=== PATIENT | female | born 1990 | race Caucasian/White ===

== ENCOUNTER 2017-08-08 12:43 | Emergency (ER) | payer MEDICAID ==
[2017-08-08] MEDS ORDERED: methylPREDNISolone SUCCINATE 125 MG/2 ML VIAL IVP STA (12:56)
[2017-08-08] MEDS ORDERED: EPINEPHrine 1 MG/ML AMP IM STA (12:56)
[2017-08-08] MEDS ORDERED: SODIUM CHLORIDE 0.9% 1,000 ML IV ONE (12:56)
[2017-08-08] MEDS ORDERED: EPINEPHrine 1 MG/ML AMP ONE (12:57)
--- NOTE | 2017-08-08 13:01 | ED Physician Documentation ---
PD HPI SKIN - Stated complaint Stated Complaint: SOA/ALLERGIC REACTION - Chief complaint Chief Complaint: Allergic Rx - History obtained from History obtained from: Patient - History of Present Illness Timing - onset: Other (Without clear inciting because she developed facial redness and a feeling of warmth and then a diffuse rash today. It is unclear what caused this. It did not start after eating. She has no history of anaphylaxis. She is visiting from out of the area and has been using a number of new soaps and detergents and also smokes marijuana just prior to this happening but that is not uncommon for her.) Review of Systems Constitutional: reports: Fever ("feels hot"). denies: Chills Nose: denies: Rhinorrhea / runny nose, Congestion Throat: denies: Sore throat Respiratory: denies: Dyspnea, Cough GI: denies: Abdominal Pain, Nausea, Vomiting PD PAST MEDICAL HISTORY - Past Medical History Past Medical History: No - Present Medications Home Medications: Ambulatory Orders Medication Instructions Recorded Confirmed EPINEPHrine [Epinephrine] 0.3 mg IJ ONCE PRN #2 auto.injct 08/08/17 predniSONE [Deltasone] 60 mg PO DAILY 5 Days tablet 08/08/17 - Allergies Allergies/Adverse Reactions: Allergies Allergy/AdvReac Type Severity Reaction Status Date / Time No Known Drug Allergies Allergy Verified 08/08/17 13:07 - Social History Does the pt have substance abuse?: Yes Substance Use and Type: Marijuana - Family History Family history: reports: Non contributory PD ED PE NORMAL - Vitals Vital signs reviewed: Yes - General General: Alert and oriented X 3, No acute distress - HEENT HEENT: Other (She is 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 that does not affect the oropharynx.) - Neck Neck: Supple, no meningeal sign, No bony TTP - Cardiac Cardiac: No murmur, Other (v tachy) - Respiratory Respiratory: No respiratory distress, Clear bilaterally - Abdomen Abdomen: Soft, Non tender - Back Back: No CVA TTP, No spinal TTP - Derm Derm: Other (Significant diffuse erythroderma with positive dermatographia.) - Neuro Neuro: Alert and oriented X 3, Normal speech - Psych Psych: Normal mood, Normal affect Results - Vitals Vitals: Vital Signs - 24 hr 08/08/17 08/08/17 08/08/17 12:50 13:30 14:05 Temperature 37.3 C Heart Rate 150 H 91 74 Respiratory 15 15 14 Rate Blood Pressure 135/86 H 109/70 112/82 H O2 Saturation 100 100 100 08/08/17 16:55 Temperature Heart Rate 91 Respiratory 18 Rate Blood Pressure 100/84 H O2 Saturation 98 Oxygen O2 Source Room air - Labs Labs: Laboratory Tests 08/08/17 08/08/17 08/08/17 13:00 13:00 15:00 WBC 6.9 RBC 4.80 Hgb 16.9 H Hct 48.1 H MCV 100.1 H MCH 35.1 H MCHC 35.1 RDW 12.4 Plt Count 216 MPV 8.1 Neut # 3.1 Lymph # 3.2 Bryan # 0.5 Eos # 0.1 Baso # 0.0 Absolute Nucleated RBC 0.01 Nucleated RBC % 0.1 Sodium 134 L Potassium 3.9 Chloride 103 Carbon Dioxide 20 L Anion Gap 11.0 BUN 18 Creatinine 1.0 Estimated GFR (MDRD) 66 L Glucose 147 H Calcium 9.3 Total Bilirubin 0.9 AST 18 ALT 14 Alkaline Phosphatase 59 Total Protein 7.2 Albumin 4.8 Globulin 2.4 Albumin/Globulin Ratio 2.0 Lipase 14 L Urine Color YELLOW Urine Clarity CLEAR Urine pH 6.0 Ur Specific [place] 1.020 Urine Protein NEGATIVE Urine Glucose (UA) NEGATIVE Urine Ketones 15 H Urine Occult Blood NEGATIVE Urine Nitrite NEGATIVE Urine Bilirubin NEGATIVE Urine Urobilinogen 0.2 (NORMAL) Ur Leukocyte Esterase NEGATIVE Ur Microscopic Review NOT INDICATED Urine Culture Comments NOT INDICATED Urine HCG, Qual NEGATIVE PD MEDICAL DECISION MAKING - ED course ED course: 27-year-old woman with anaphylaxis that actually looks pretty severe but is without clear source. Given 0.3 mg of IM epinephrine on initial evaluation with significant improvement in her symptoms, also followed by IV Benadryl and Solu-Medrol. Later had some itching without overt evidence of recurrent anaphylaxis and the Benadryl was repeated with no more recurrent symptoms during a 6 hour observation period. The patient and family were counseled as to the diagnosis and need for follow- up. I counseled the patient with regard to signs and symptoms that would necessitate an urgent reevaluation in the emergency department. They understand they are welcome to return at any time if worse or if not improving as expected. This document was made in part using voice recognition software. While efforts are made to proofread this documents, sound alike and grammatical errors may occur. Departure - Departure Disposition: 01 Home, Self Care Clinical Impression: Anaphylaxis Qualifiers: Encounter type: initial encounter Qualified Code(s): T78.2XXA - Anaphylactic shock, unspecified, initial encounter Condition: Critical Instructions: ED Anaphylaxis General Prescriptions: EPINEPHrine [Epinephrine] 0.3 mg IJ ONCE PRN #2 auto.injct PRN Reason: Allergy Symptoms predniSONE [Deltasone] 60 mg PO DAILY 5 Days tablet Comments: Call your doctor to arrange a follow-up appointment, make the next available appointment. In the interim, return anytime if worse or if new symptoms develop.
[2017-08-08 13:10] LABS: BASOPHILS % (AUTO) 0.1 %; EOSINOPHILS # (AUTO) 0.1 10^3/uL (0.0-0.7); EOSINOPHILS % (AUTO) 1.5 %; HCT - HEMATOCRIT 48.1 % (37.0-47.0); HGB - HEMOGLOBIN 16.9 g/dL (12.0-16.0); LYMPHOCYTES # (AUTO) 3.2 10^3/uL (1.5-3.5); LYMPHOCYTES % (AUTO) 46.4 %; MEAN CORPUSCULAR HEMOGLOBIN 35.1 pg (27.0-31.0); MEAN CORPUSCULAR HGB CONC 35.1 g/dL (32.0-36.0); MEAN CORPUSCULAR VOLUME 100.1 fL (81.0-99.0); MEAN PLATELET VOLUME 8.1 fL (7.9-10.8); MONOCYTES # (AUTO) 0.5 10^3/uL (0.0-1.0); MONOCYTES % (AUTO) 7.4 %; NEUTROPHILS # (AUTO) 3.1 10^3/uL (1.5-6.6); NEUTROPHILS % (AUTO) 44.6 %; NUCLEATED RED BLOOD CELLS AUTO 0.1 /100WBC; RED CELL DISTRIBUTION WIDTH 12.4 % (12.0-15.0); UNCORRECTED WHITE BLOOD COUNT 6.9 x10^3/uL; WHITE BLOOD COUNT 6.9 x10^3/uL (4.8-10.8)
[2017-08-08] MEDS: diphenhydrAMINE INJ 50 MG/ML VIAL IVP STA ×2 (13:12→15:31)
[2017-08-08] MEDS ORDERED: diphenhydrAMINE INJ 50 MG/ML VIAL ONE ×2 (13:17→15:35)
[2017-08-08] MEDS ORDERED: methylPREDNISolone SUCCINATE 125 MG/2 ML VIAL ONE (13:18)
[2017-08-08 13:22] LABS: BILIRUBIN,TOTAL 0.9 mg/dL (0.2-1.0); CALCIUM 9.3 mg/dL (8.5-10.3); POTASSIUM 3.9 mmol/L (3.5-5.0); TOTAL PROTEIN 7.2 g/dL (6.7-8.2)
[2017-08-08] MEDS ORDERED: diphenhydrAMINE INJ 50 MG/ML VIAL IVP STA (15:23)
[2017-08-08 16:15] LABS: BILIRUBIN,URINE NEGATIVE (NEGATIVE)
[2017-08-08 16:20] LABS: HCG UR QUAL NEGATIVE
[2017-08-08 16:24] LABS: UA CHARGE (STRIP ONLY) YES; UR CULTURE IF IND NOT INDICATED
[2017-08-08 20:28] VITALS: BP 110/81
== END 2017-08-08 19:02 | disposition home or self-care (01) ==
LOC: ED 12:43
DX: T78.2XXA Anaphylactic shock, unspecified, initial encounter (principal)
CPT/HCPCS: 36415; 80053; 81001; 81003; 81025; 83690; 85025; 87086; 96361; 96372; 96374; 96375; 99283; 99284